=== PATIENT | female | born 1990 | race Hispanic/Latino ===

== ENCOUNTER 2020-06-15 01:50 | Observation (INO) | payer MEDICAID, OTHER ==
[~2020-06-15] VITALS: Ht 175.3 cm; Wt 100.7 kg
[2020-06-15] VITALS (23 sets, daily range): BP systolic 108–147; BP diastolic 44–65
[~2020-06-15 01:50] MED LIST: PREN-154 PO
[2020-06-15 02:10] LABS: APPEARANCE,URINE Cloudy (CLEAR); BILIRUBIN,URINE Negative (NEGATIVE); COLOR,URINE Yellow (YELLOW); GLUCOSE, URINE (UA) Negative (NEGATIVE); KETONES,URINE Negative (NEGATIVE); LEUKOCYTE ESTERASE ,URINE Large (NEGATIVE); NITRATE,URINE Negative (NEGATIVE); OCCULT BLOOD,URINE Trace (NEGATIVE); PROTEIN,URINE Negative (NEGATIVE); UROBILINOGEN,URINE 0.2 mg/dL (0.2-1.0)
[2020-06-15 02:18] LABS: BACTERIA,URINE Rare /HPF (None Seen); RBC,URINE 0-1 /HPF (0-1); SQUAMOUS EPITHELIAL CELL,UR Few /HPF (0-2)
[2020-06-15 02:24] LABS: BASOPHILS % (AUTO) 0.4 % (0.0-5.0); EOSINOPHILS % (AUTO) 0.5 % (0.0-8.0); LYMPHOCYTES % (AUTO) 9.5 % (21.0-51.0); MEAN CORPUSCULAR HEMOGLOBIN 25.8 pg (27.0-33.0); MEAN CORPUSCULAR HGB CONC 32.1 g/dL (32.0-36.0); MEAN CORPUSCULAR VOLUME 80.4 fL (79-99); MONOCYTES % (AUTO) 4.9 % (3.0-13.0); NEUTROPHILS % (AUTO) 84.3 % (40.0-77.0); PLATELET COUNT (AUTO) 335 K/uL (130-400); RED BLOOD CELL COUNT(AUTO) 4.85 MIL/uL (4.00-5.50); RED CELL DISTRIBUTION WIDTH 14.2 % (11.0-15.5); WHITE BLOOD COUNT (AUTO) 15.6 K/uL (4.8-10.8)
[2020-06-15 02:29] LABS: CREATININE 0.9 mg/dL (0.5-1.5)
[2020-06-15 02:33] LABS: ALBUMIN 4.2 g/dL (3.5-5.0); BILIRUBIN,TOTAL 0.5 mg/dL (0.2-1.0); TOTAL PROTEIN, SERUM 8.6 g/dL (6.0-8.3)
[2020-06-15] MEDS ORDERED: SODIUM CHLORIDE 0.9% 50 ML IV ONE (03:00)
[2020-06-15] MEDS ORDERED: PROCHLORPERAZINE EDISYLATE 10 MG/2 ML VIAL ONE (03:00)
[2020-06-15] MEDS ORDERED: DiphenhydrAMINE HCL 50 MG/ML VIAL ONE (03:00)
[2020-06-15] MEDS ORDERED: SODIUM CHLORIDE 0.9% 1000ML 1,000 ML IV ONE ×2 (03:01→07:59)
[2020-06-15] MEDS ORDERED: FAMOTIDINE/PF 20 MG/2 ML VIAL IV ONE (03:06)
[2020-06-15] MEDS ORDERED: KETOROLAC TROMETHAMINE 30MG/ML ONE ×2 (03:06→18:39)
[2020-06-15] MEDS ORDERED: ZOSYN 3.375GM+NS 50ML 50 ML IV ONE (03:51)
[2020-06-15] MEDS ORDERED: ONDANSETRON HCL 4 MG/2 ML VIAL IVP PRN (07:15)
[2020-06-15] MEDS: SODIUM CHLORIDE 0.9% 1000ML 1,000 ML IV SCH ×3 (07:15→21:00)
[2020-06-15] MEDS: MORPHINE SULFATE 2 MG/ML 1ML SYG IVP PRN ×2 (09:27→16:05)
[2020-06-15] MEDS: ZOSYN 3.375GM+NS 50ML 50 ML IV SCH ×3 (13:00→20:36)
[2020-06-15] MEDS ORDERED: BUPIVACAINE/PF 0.5% 30ML VIAL ONE (16:11)
[2020-06-15] MEDS ORDERED: DEXAMETHASONE SOD PHOSPHATE 10MG/ML 1ML VIAL ONE (17:43)
[2020-06-15] MEDS ORDERED: SUCCINYLCHOLINE CHLORIDE 20 MG/ML 10 ML VIAL ONE (17:43)
[2020-06-15] MEDS ORDERED: MIDAZOLAM HCL 1 MG/ML 2ML VIAL ONE (17:44)
[2020-06-15] MEDS ORDERED: LIDOCAINE PF 2% 5ML ABBOJECT ONE (17:44)
[2020-06-15] MEDS ORDERED: PROPOFOL 10 MG/ML 20ML VIAL IV ONE (17:45)
[2020-06-15] MEDS ORDERED: GLYCOPYRROLATE 1 MG/5 ML SYRINGE ONE (17:45)
[2020-06-15] MEDS ORDERED: ONDANSETRON HCL 4 MG/2 ML VIAL ONE (17:45)
[2020-06-15] MEDS ORDERED: ROCURONIUM 10MG/1ML SYR 10 MG/ML ML ONE (17:46)
[2020-06-15] MEDS ORDERED: FENTANYL CITRATE PF 50 MCG/1 ML 2ML VIAL ONE ×2 (17:46→18:35)
[2020-06-15] MEDS ORDERED: NEOSTIGMINE 5MG/5ML SYR IV ONE (17:46)
[2020-06-15] MEDS ORDERED: MEPERIDINE-PF 25 MG/ML SYG ONE (18:06)
[2020-06-15] MEDS ORDERED: ACETAMINOPHEN-CODEINE 300/30MG TAB PO PRN ×2 (20:00)
[2020-06-16 03:50] VITALS: BP 113/56
[2020-06-16] MEDS: ZOSYN 3.375GM+NS 50ML 50 ML IV SCH (05:40)
[2020-06-16 05:53] LABS: HEMATOCRIT 33.2 % (36-48); MEAN CORPUSCULAR HEMOGLOBIN 25.6 pg (27.0-33.0); MEAN CORPUSCULAR HGB CONC 31.3 g/dL (32.0-36.0); MEAN CORPUSCULAR VOLUME 81.6 fL (79-99); RED BLOOD CELL COUNT(AUTO) 4.07 MIL/uL (4.00-5.50); RED CELL DISTRIBUTION WIDTH 14.7 % (11.0-15.5); WHITE BLOOD COUNT (AUTO) 15.2 K/uL (4.8-10.8)
[2020-06-16 06:09] LABS: POTASSIUM 4.1 mmol/L (3.5-5.1)
[2020-06-16 06:21] LABS: CREATININE 0.9 mg/dL (0.5-1.5)
[2020-06-16 08:27] VITALS: BP 108/51
[2020-06-16 11:51] VITALS: BP 127/61
== END 2020-06-16 18:40 | disposition home or self-care (01) ==
LOC: EDH 01:50 → EDHIP 06:40 → 3CH 08:56
PROVIDERS: ADMIT Internal Medicine; ATTEND Internal Medicine
DX: K35.80 Unspecified acute appendicitis (principal); D72.829 Elevated white blood cell count, unspecified; Z98.51 Tubal ligation status
CPT/HCPCS: 36415 ×2; 44970; 74176; 80048; 80053; 81001; 83690; 85025; 85027; 86850; 86900; 86901; 87088; 93005; 96361; 96365; 96366 ×2; 96375; 96376; 99285; A4649 ×3; C1769 ×3; G0378 ×35; J0330; J0780; J1100; J1200; J1885 ×2; J2001; J2175; J2250; J2405; J2543 ×5; J2704; J2710; J3010 ×2; J3490 ×3; J7030 ×3; J7120

== ENCOUNTER 2020-06-17 19:18 | Inpatient (IN) | payer OTHER ==
[~2020-06-17] VITALS: Ht 175.3 cm; Wt 104.0 kg
[2020-06-17 19:41] LABS: APPEARANCE,URINE Clear (CLEAR); BILIRUBIN,URINE Negative (NEGATIVE); COLOR,URINE Yellow (YELLOW); GLUCOSE, URINE (UA) Negative (NEGATIVE); KETONES,URINE Negative (NEGATIVE); LEUKOCYTE ESTERASE ,URINE Negative (NEGATIVE); NITRATE,URINE Negative (NEGATIVE); OCCULT BLOOD,URINE Trace (NEGATIVE); PH,URINE 7.5 (5.0-8.0); PROTEIN,URINE Negative (NEGATIVE)
[2020-06-17] MEDS ORDERED: ZOSYN 3.375GM+NS 50ML 50 ML IV ONE (19:45)
[2020-06-17] MEDS ORDERED: ACETAMINOPHEN 325 MG TAB ONE (19:45)
[2020-06-17] MEDS ORDERED: IBUPROFEN 600 MG TABLET ONE (19:46)
[2020-06-17] MEDS ORDERED: 0.9%NACL 1000ML 2,000 ML IV ONE (19:47)
[2020-06-17 19:49] LABS: BACTERIA,URINE Rare /HPF (None Seen); WBC,URINE 0-1 /HPF (0-1)
[2020-06-17 19:50] LABS: SQUAMOUS EPITHELIAL CELL,UR Few /HPF (0-2)
[2020-06-17 20:35] LABS: BASOPHILS % (AUTO) 0.3 % (0.0-5.0); EOSINOPHILS % (AUTO) 0.3 % (0.0-8.0); HEMATOCRIT 31.2 % (36-48); LYMPHOCYTES % (AUTO) 11.4 % (21.0-51.0); MEAN CORPUSCULAR HEMOGLOBIN 26.1 pg (27.0-33.0); MEAN CORPUSCULAR HGB CONC 32.1 g/dL (32.0-36.0); MEAN CORPUSCULAR VOLUME 81.5 fL (79-99); MONOCYTES % (AUTO) 7.3 % (3.0-13.0); NEUTROPHILS % (AUTO) 80.4 % (40.0-77.0); PLATELET COUNT (AUTO) 264 K/uL (130-400); RED BLOOD CELL COUNT(AUTO) 3.83 MIL/uL (4.00-5.50); RED CELL DISTRIBUTION WIDTH 15.1 % (11.0-15.5); WHITE BLOOD COUNT (AUTO) 11.4 K/uL (4.8-10.8)
[2020-06-17 20:46] LABS: CARBON DIOXIDE 23 mmol/L (21-32); CHLORIDE 102 mmol/L (101-111); CREATININE 0.9 mg/dL (0.5-1.5); GLOMERULAR FILTR. RATE CALC 79 mL/min (>60); GLUCOSE,RANDOM 102 mg/dL (70-105); POTASSIUM 3.8 mmol/L (3.5-5.1); SODIUM SERUM 135 mmol/L (136-145); UREA NITROGEN, BLOOD 10 mg/dL (7-18)
[2020-06-17 20:50] LABS: INR 1.04 (0.85-1.15); PROTHROMBIN TIME 11.3 SEC (9.6-11.6)
[2020-06-17 21:05] LABS: ALANINE AMINOTRANSFERASE 20 U/L (12-78); ALBUMIN 3.1 g/dL (3.5-5.0); ASPARTATE AMINOTRANSFERASE 20 U/L (10-37); BILIRUBIN,TOTAL 0.9 mg/dL (0.2-1.0); CREATINE KINASE, TOTAL 56 U/L (21-232); MYOGLOBIN 20 ng/mL (10-92); TOTAL PROTEIN, SERUM 7.5 g/dL (6.0-8.3); TROPONIN I < 0.04 ng/mL (0.00-0.06)
[2020-06-17] MEDS ORDERED: IOHEXOL-350 75 ML VIAL IV ONE (21:16)
[2020-06-18] MEDS ORDERED: GUAIFENESIN-DM 200/20 MG 10 ML PO PRN (00:15)
[2020-06-18] MEDS ORDERED: NITROGLYCERIN 0.4 MG SL TAB SL PRN (00:15)
[2020-06-18] MEDS ORDERED: DiphenhydrAMINE HCL 50 MG/ML VIAL IV PRN (00:15)
[2020-06-18] MEDS ORDERED: MAG/ALUM/SIMETH 30 ML UDCUP PO PRN (00:15)
[2020-06-18] MEDS ORDERED: ACETAMINOPHEN 325 MG TAB PO PRN (00:15)
[2020-06-18] MEDS ORDERED: ONDANSETRON 4MG INJ IV PRN (00:15)
[2020-06-18] MEDS ORDERED: LACTULOSE 20 GM/30 ML UDCUP PO PRN (00:15)
[2020-06-18] MEDS: LACTATED RINGERS 1000ML 1,000 ML IV SCH (00:15)
[2020-06-18] MEDS ORDERED: MORPHINE 2 MG SYG IV PRN (00:15)
[2020-06-18] MEDS ORDERED: ALBUTEROL 0.083% 2.5 MG/3 ML INH IH PRN (00:15)
[2020-06-18] MEDS ORDERED: DIPHENHYDRAMINE HCL 25 MG CAPSULE PO PRN (00:15)
[2020-06-18] MEDS ORDERED: PHARMACY COMMUNICATION MISC SCH (01:00)
[2020-06-18 04:00] VITALS: BP 114/49
[2020-06-18] MEDS ORDERED: 0.9%NACL 100ML 100 ML IV ONE (04:44)
[2020-06-18] MEDS: ZOSYN 3.375GM+NS 50ML 50 ML IV SCH ×3 (04:58→21:41)
[2020-06-18 05:21] LABS: BASOPHILS % (AUTO) 0.3 % (0.0-5.0); EOSINOPHILS % (AUTO) 1.3 % (0.0-8.0); HEMATOCRIT 27.8 % (36-48); LYMPHOCYTES % (AUTO) 13.9 % (21.0-51.0); MEAN CORPUSCULAR HEMOGLOBIN 25.5 pg (27.0-33.0); MEAN CORPUSCULAR HGB CONC 30.9 g/dL (32.0-36.0); MEAN CORPUSCULAR VOLUME 82.5 fL (79-99); MONOCYTES % (AUTO) 9.2 % (3.0-13.0); NEUTROPHILS % (AUTO) 74.9 % (40.0-77.0); PLATELET COUNT (AUTO) 217 K/uL (130-400); RED BLOOD CELL COUNT(AUTO) 3.37 MIL/uL (4.00-5.50); RED CELL DISTRIBUTION WIDTH 15.1 % (11.0-15.5); WHITE BLOOD COUNT (AUTO) 9.7 K/uL (4.8-10.8)
[2020-06-18 05:43] LABS: CREATININE 0.7 mg/dL (0.5-1.5); POTASSIUM 3.5 mmol/L (3.5-5.1)
[2020-06-18 07:48] VITALS: BP 126/67
[2020-06-18] MEDS: ENOXAPARIN SODIUM 40 MG/0.4 ML SYRINGE SQ SCH (09:00)
[2020-06-18] MEDS: FAMOTIDINE 20MG VIAL IV SCH ×2 (09:17→21:41)
[2020-06-18] MEDS: MORPHINE 4 MG SYG IV PRN ×2 (09:21→17:08)
[2020-06-18 11:37] VITALS: BP 124/62
[2020-06-18 16:52] VITALS: BP 137/68
[2020-06-18 20:00] VITALS: BP 131/68
[2020-06-18] MEDS: MORPHINE 2 MG SYG IV PRN (21:45)
[2020-06-19] VITALS (7 sets, daily range): BP systolic 119–135; BP diastolic 63–73
[2020-06-19] MEDS: LACTATED RINGERS 1000ML 1,000 ML IV SCH ×3 (00:29→15:37)
[2020-06-19] MEDS: MORPHINE 2 MG SYG IV PRN ×5 (02:22→22:00)
[2020-06-19] MEDS: ZOSYN 3.375GM+NS 50ML 50 ML IV SCH ×3 (05:38→21:56)
[2020-06-19 06:00] LABS: BASOPHILS % (AUTO) 0.4 % (0.0-5.0); EOSINOPHILS % (AUTO) 1.6 % (0.0-8.0); HEMATOCRIT 28.8 % (36-48); LYMPHOCYTES % (AUTO) 15.2 % (21.0-51.0); MEAN CORPUSCULAR HEMOGLOBIN 25.8 pg (27.0-33.0); MEAN CORPUSCULAR HGB CONC 32.3 g/dL (32.0-36.0); MEAN CORPUSCULAR VOLUME 79.8 fL (79-99); NEUTROPHILS % (AUTO) 72.4 % (40.0-77.0); PLATELET COUNT (AUTO) 282 K/uL (130-400); RED BLOOD CELL COUNT(AUTO) 3.61 MIL/uL (4.00-5.50); RED CELL DISTRIBUTION WIDTH 14.6 % (11.0-15.5); WHITE BLOOD COUNT (AUTO) 9.7 K/uL (4.8-10.8)
[2020-06-19 06:57] LABS: CREATININE 0.8 mg/dL (0.5-1.5); POTASSIUM 3.4 mmol/L (3.5-5.1)
[2020-06-19] MEDS: KCL 20 MEQ ERTAB PO SCH ×2 (09:12→16:30)
[2020-06-19] MEDS: FAMOTIDINE 20MG VIAL IV SCH ×2 (09:12→21:56)
[2020-06-19] MEDS: ENOXAPARIN SODIUM 40 MG/0.4 ML SYRINGE SQ SCH (09:12)
[2020-06-20] MEDS: LACTATED RINGERS 1000ML 1,000 ML IV SCH ×3 (02:11→22:15)
[2020-06-20 03:54] VITALS: BP 109/58
[2020-06-20] MEDS: ZOSYN 3.375GM+NS 50ML 50 ML IV SCH ×3 (05:27→20:36)
[2020-06-20] MEDS: MORPHINE 2 MG SYG IV PRN ×2 (05:28→20:42)
[2020-06-20] MEDS ORDERED: DIATR MEGLU/DIATRIZOATE SODIUM 30 ML BOTTLE ONE (06:49)
[2020-06-20 08:30] VITALS: BP 117/55
[2020-06-20 08:46] LABS: BASOPHILS % (AUTO) 0.4 % (0.0-5.0); EOSINOPHILS % (AUTO) 2.9 % (0.0-8.0); HEMATOCRIT 30.1 % (36-48); LYMPHOCYTES % (AUTO) 15.8 % (21.0-51.0); MEAN CORPUSCULAR HEMOGLOBIN 25.7 pg (27.0-33.0); MEAN CORPUSCULAR HGB CONC 31.6 g/dL (32.0-36.0); MEAN CORPUSCULAR VOLUME 81.6 fL (79-99); NEUTROPHILS % (AUTO) 71.4 % (40.0-77.0); PLATELET COUNT (AUTO) 320 K/uL (130-400); RED BLOOD CELL COUNT(AUTO) 3.69 MIL/uL (4.00-5.50); RED CELL DISTRIBUTION WIDTH 14.7 % (11.0-15.5); WHITE BLOOD COUNT (AUTO) 10.4 K/uL (4.8-10.8)
[2020-06-20 08:54] LABS: CREATININE 0.9 mg/dL (0.5-1.5); POTASSIUM 3.9 mmol/L (3.5-5.1)
[2020-06-20 11:31] VITALS: BP 121/62
[2020-06-20] MEDS: ENOXAPARIN SODIUM 40 MG/0.4 ML SYRINGE SQ SCH (11:36)
[2020-06-20] MEDS: FAMOTIDINE 20MG VIAL IV SCH ×2 (11:36→20:36)
[2020-06-20 16:33] VITALS: BP 117/63
[2020-06-20 19:42] VITALS: BP 121/58
[2020-06-21] VITALS (11 sets, daily range): BP systolic 100–125; BP diastolic 53–77
[2020-06-21] MEDS: KETOROLAC 30MG VIAL (30MG/ML) IM PRN ×2 (03:12→23:53)
[2020-06-21 04:42] LABS: BASOPHILS % (AUTO) 0.3 % (0.0-5.0); EOSINOPHILS % (AUTO) 4.3 % (0.0-8.0); HEMATOCRIT 29.5 % (36-48); LYMPHOCYTES % (AUTO) 22.3 % (21.0-51.0); MEAN CORPUSCULAR HEMOGLOBIN 25.1 pg (27.0-33.0); MEAN CORPUSCULAR HGB CONC 30.8 g/dL (32.0-36.0); MEAN CORPUSCULAR VOLUME 81.5 fL (79-99); MONOCYTES % (AUTO) 9.6 % (3.0-13.0); NEUTROPHILS % (AUTO) 62.9 % (40.0-77.0); PLATELET COUNT (AUTO) 340 K/uL (130-400); RED BLOOD CELL COUNT(AUTO) 3.62 MIL/uL (4.00-5.50); RED CELL DISTRIBUTION WIDTH 14.6 % (11.0-15.5); WHITE BLOOD COUNT (AUTO) 9.8 K/uL (4.8-10.8)
[2020-06-21] MEDS: ZOSYN 3.375GM+NS 50ML 50 ML IV SCH ×3 (04:54→20:00)
[2020-06-21 05:13] LABS: CREATININE 0.8 mg/dL (0.5-1.5)
[2020-06-21 05:28] LABS: INR 1.04 (0.85-1.15); PROTHROMBIN TIME 11.3 SEC (9.6-11.6)
[2020-06-21 05:30] LABS: PARTIAL THROMBOPLASTIN TIME 25.2 SEC (26.3-35.5)
[2020-06-21] MEDS: KCL 20 MEQ ERTAB PO SCH (06:01)
[2020-06-21] MEDS: ENOXAPARIN SODIUM 40 MG/0.4 ML SYRINGE SQ SCH (09:00)
[2020-06-21] MEDS: FAMOTIDINE 20MG VIAL IV SCH ×2 (09:21→20:00)
[2020-06-21] MEDS: LACTATED RINGERS 1000ML 1,000 ML IV SCH ×2 (09:22→18:15)
[2020-06-21] MEDS ORDERED: FENTANYL CITRATE PF 50 MCG/1 ML 2ML VIAL ONE (11:31)
[2020-06-21] MEDS ORDERED: MIDAZOLAM HCL 1 MG/ML 2ML VIAL ONE (11:31)
[2020-06-21] MEDS: FLUCONAZOLE 100 MG TAB PO SCH (18:04)
[2020-06-22] VITALS: BP 122/67
[2020-06-22] MEDS: LACTATED RINGERS 1000ML 1,000 ML IV SCH ×3 (03:27→20:31)
[2020-06-22] MEDS: KCL 20 MEQ ERTAB PO SCH (03:41)
[2020-06-22 04:00] VITALS: BP 109/56
[2020-06-22] MEDS: ZOSYN 3.375GM+NS 50ML 50 ML IV SCH ×3 (04:56→20:31)
[2020-06-22 05:27] LABS: BASOPHILS % (AUTO) 0.4 % (0.0-5.0); EOSINOPHILS % (AUTO) 3.5 % (0.0-8.0); HEMATOCRIT 30.2 % (36-48); LYMPHOCYTES % (AUTO) 25.1 % (21.0-51.0); MEAN CORPUSCULAR HEMOGLOBIN 25.6 pg (27.0-33.0); MEAN CORPUSCULAR HGB CONC 31.1 g/dL (32.0-36.0); MEAN CORPUSCULAR VOLUME 82.3 fL (79-99); MONOCYTES % (AUTO) 8.1 % (3.0-13.0); NEUTROPHILS % (AUTO) 62.2 % (40.0-77.0); PLATELET COUNT (AUTO) 395 K/uL (130-400); RED BLOOD CELL COUNT(AUTO) 3.67 MIL/uL (4.00-5.50); RED CELL DISTRIBUTION WIDTH 14.5 % (11.0-15.5)
[2020-06-22 05:31] LABS: CREATININE 0.8 mg/dL (0.5-1.5); POTASSIUM 4.5 mmol/L (3.5-5.1)
[2020-06-22 07:30] VITALS: BP 114/57
[2020-06-22] MEDS: FLUCONAZOLE 100 MG TAB PO SCH (09:36)
[2020-06-22] MEDS: FAMOTIDINE 20MG VIAL IV SCH ×2 (09:36→19:54)
[2020-06-22] MEDS: ENOXAPARIN SODIUM 40 MG/0.4 ML SYRINGE SQ SCH (09:36)
[2020-06-22 11:00] VITALS: BP 113/71
[2020-06-22 16:06] VITALS: BP 108/68
[2020-06-22] MEDS: ACETAMINOPHEN 325 MG TAB PO PRN (19:54)
[2020-06-22 20:00] VITALS: BP 115/73
[2020-06-23] VITALS (7 sets, daily range): BP systolic 100–116; BP diastolic 43–60
[2020-06-23] MEDS: ZOSYN 3.375GM+NS 50ML 50 ML IV SCH ×3 (04:54→21:30)
[2020-06-23] MEDS: KCL 20 MEQ ERTAB PO SCH (05:03)
[2020-06-23 05:14] LABS: BASOPHILS % (AUTO) 0.5 % (0.0-5.0); EOSINOPHILS % (AUTO) 3.1 % (0.0-8.0); HEMATOCRIT 28.9 % (36-48); LYMPHOCYTES % (AUTO) 24.7 % (21.0-51.0); MEAN CORPUSCULAR HEMOGLOBIN 25.5 pg (27.0-33.0); MEAN CORPUSCULAR HGB CONC 31.5 g/dL (32.0-36.0); MONOCYTES % (AUTO) 8.3 % (3.0-13.0); NEUTROPHILS % (AUTO) 62.8 % (40.0-77.0); PLATELET COUNT (AUTO) 405 K/uL (130-400); RED BLOOD CELL COUNT(AUTO) 3.57 MIL/uL (4.00-5.50); RED CELL DISTRIBUTION WIDTH 14.6 % (11.0-15.5); WHITE BLOOD COUNT (AUTO) 7.8 K/uL (4.8-10.8)
[2020-06-23 05:26] LABS: CREATININE 0.9 mg/dL (0.5-1.5); POTASSIUM 4.1 mmol/L (3.5-5.1)
[2020-06-23] MEDS ORDERED: DIATR MEGLU/DIATRIZOATE SODIUM 30 ML BOTTLE ONE (08:28)
[2020-06-23] MEDS: FAMOTIDINE 20MG VIAL IV SCH ×2 (09:00→21:30)
[2020-06-23] MEDS: LACTATED RINGERS 1000ML 1,000 ML IV SCH ×2 (10:15→15:43)
[2020-06-23] MEDS ORDERED: IOHEXOL-350 75 ML VIAL IV ONE (12:27)
[2020-06-23] MEDS: FLUCONAZOLE 100 MG TAB PO SCH (13:14)
[2020-06-23] MEDS: ENOXAPARIN SODIUM 40 MG/0.4 ML SYRINGE SQ SCH (13:15)
[2020-06-23] MEDS: ACETAMINOPHEN 325 MG TAB PO PRN (21:33)
[2020-06-24 03:46] VITALS: BP 102/60
[2020-06-24] MEDS: ZOSYN 3.375GM+NS 50ML 50 ML IV SCH ×2 (04:28→13:46)
[2020-06-24] MEDS: LACTATED RINGERS 1000ML 1,000 ML IV SCH (04:28)
[2020-06-24 05:38] LABS: BASOPHILS % (AUTO) 0.6 % (0.0-5.0); EOSINOPHILS % (AUTO) 3.2 % (0.0-8.0); LYMPHOCYTES % (AUTO) 24.8 % (21.0-51.0); MEAN CORPUSCULAR HEMOGLOBIN 25.5 pg (27.0-33.0); MEAN CORPUSCULAR VOLUME 82.2 fL (79-99); MONOCYTES % (AUTO) 7.2 % (3.0-13.0); NEUTROPHILS % (AUTO) 63.7 % (40.0-77.0); PLATELET COUNT (AUTO) 440 K/uL (130-400); RED BLOOD CELL COUNT(AUTO) 3.65 MIL/uL (4.00-5.50); RED CELL DISTRIBUTION WIDTH 14.5 % (11.0-15.5); WHITE BLOOD COUNT (AUTO) 7.7 K/uL (4.8-10.8)
[2020-06-24 05:45] LABS: CREATININE 0.9 mg/dL (0.5-1.5); POTASSIUM 4.3 mmol/L (3.5-5.1)
[2020-06-24 08:03] VITALS: BP 103/58
[2020-06-24] MEDS: FAMOTIDINE 20MG VIAL IV SCH (09:47)
[2020-06-24] MEDS: FLUCONAZOLE 100 MG TAB PO SCH (09:47)
[2020-06-24] MEDS: ENOXAPARIN SODIUM 40 MG/0.4 ML SYRINGE SQ SCH (09:48)
[2020-06-24 11:36] VITALS: BP 128/79
[2020-06-24] MEDS ORDERED: AMOX-429 PO (15:29)
[2020-06-24 15:55] VITALS: BP 113/63
== END 2020-06-24 17:43 | disposition home or self-care (01) | DRG 871 ==
LOC: EDH 19:18 → OBSVTOIN 06-18 00:14 → EDHIP 06-18 00:14 → 3DH 06-18 02:38
PROVIDERS: ADMIT Family Medicine; ATTEND Family Medicine
PROC: 0D9W30Z Drainage of Peritoneum with Drainage Device, Percutaneous Approach (ICD-10-PCS; principal; 2020-06-21)
DX: A41.9 Sepsis, unspecified organism (principal); K68.19 Other retroperitoneal abscess; J98.11 Atelectasis; N13.30 Unspecified hydronephrosis; K82.8 Other specified diseases of gallbladder; D64.9 Anemia, unspecified; Z20.822 Contact with and (suspected) exposure to COVID-19; E66.9 Obesity, unspecified; E87.6 Hypokalemia; Z80.3 Family history of malignant neoplasm of breast
CPT/HCPCS: 10030; 36415; 71045; 74176; 74177; 76705; 77012; 78227; 80048; 80053; 81001; 82550; 83605; 83690; 83874; 84145; 84484; 85025; 85027; 85610; 85730; 86850; 86900; 86901; 87040; 87071; 87088; 87205; 87426; 87804; 93005; 96361; 96365; 96366; 96375; 96376; 99152; 99153; A9537; G0378; J0330; J0780; J1100; J1200; J1650; J1885; J2001; J2175; J2250; J2270; J2405; J2543; J2704; J2710; J3010; J3490; J7030; J7120; Q9963; Q9967; U0003

== ENCOUNTER 2020-07-02 08:12 | Day surgery (SDC) | payer OTHER ==
[2020-06-30 12:50] LABS: EOSINOPHILS % (AUTO) 2.1 % (0.0-8.0); HEMATOCRIT 36.5 % (36-48); LYMPHOCYTES % (AUTO) 28.6 % (21.0-51.0); MEAN CORPUSCULAR HEMOGLOBIN 25.7 pg (27.0-33.0); MEAN CORPUSCULAR HGB CONC 31.2 g/dL (32.0-36.0); MEAN CORPUSCULAR VOLUME 82.4 fL (79-99); MONOCYTES % (AUTO) 5.8 % (3.0-13.0); NEUTROPHILS % (AUTO) 62.2 % (40.0-77.0); PLATELET COUNT (AUTO) 628 K/uL (130-400); RED BLOOD CELL COUNT(AUTO) 4.43 MIL/uL (4.00-5.50); RED CELL DISTRIBUTION WIDTH 14.8 % (11.0-15.5); WHITE BLOOD COUNT (AUTO) 9.4 K/uL (4.8-10.8)
[2020-06-30 13:02] LABS: INR 1.09 (0.85-1.15); PROTHROMBIN TIME 11.8 SEC (9.6-11.6)
[2020-06-30 13:03] LABS: PARTIAL THROMBOPLASTIN TIME 26.5 SEC (26.3-35.5)
[2020-06-30 13:06] LABS: CREATININE 0.7 mg/dL (0.5-1.5); POTASSIUM 4.1 mmol/L (3.5-5.1)
[~2020-07-02 08:12] MED LIST changes: +AMOX-429 PO; -PREN-154 PO
[2020-07-02] MEDS ORDERED: LIDOCAINE HCL 1% MDV 50ML VIAL ONE (11:10)
[2020-07-02] MEDS ORDERED: IOHEXOL-350 50ML VIAL IV ONE (11:10)
== END 2020-07-02 12:35 | disposition home or self-care (01) ==
LOC: DAH 08:12
PROVIDERS: ATTEND Surgery
DX: L02.211 Cutaneous abscess of abdominal wall (principal); Z79.01 Long term (current) use of anticoagulants; Z90.49 Acquired absence of other specified parts of digestive tract; Z79.899 Other long term (current) drug therapy
CPT/HCPCS: 36415; 49424; 72192; 76080; 80048; 85025; 85610; 85730; A4215; A4216; A4221; A4223; A4606; A4663; Q9967; J3490

== ENCOUNTER 2024-01-04 20:25 | Emergency (ER) | payer BC, OTHER ==
[~2024-01-04] VITALS: Ht 175.3 cm; Wt 108.9 kg
[2024-01-04] MEDS: DIPH,PERTUSS(ACELL),TET VAC/PF 0.5 ML VIAL IM ONE (22:42)
[2024-01-04] MEDS: acetaMINOPHEN 500 MG TABLET PO ONE (22:42)
[2024-01-04] MEDS: LIDOCAINE HCL 1% 20 ML VIAL INJ SCH (22:43)
[2024-01-04] MEDS ORDERED: AMOX1TAB16 PO (23:33)
[2024-01-04 23:35] VITALS: BP 134/74; PULSE 88; RESP 20; TEMP 98.8; O2SAT 100
== END 2024-01-04 23:46 | disposition home or self-care (01) ==
LOC: EDH 20:25
DX: S61.411A Laceration without foreign body of right hand, initial encounter (principal); Z98.51 Tubal ligation status; Z90.49 Acquired absence of other specified parts of digestive tract; Z79.2 Long term (current) use of antibiotics; W54.0XXA Bitten by dog, initial encounter; Y93.89 Activity, other specified; Y92.89 Other specified places as the place of occurrence of the external cause; Y99.8 Other external cause status
CPT/HCPCS: 12001; 73130; 81025; 90471; 90715